=== PATIENT | female | born 1985 | race American Indian/Alaskan Native ===

== ENCOUNTER 2016-03-31 19:39 | Emergency (ER) | payer SELFPAY ==
[2016-03-31 20:35] VITALS: BP 113/71
[2016-03-31] MEDS ORDERED: TYLENOL PO ONE (20:38)
== END 2016-04-01 01:30 | disposition left against medical advice (07) ==
LOC: ED 19:39
DX: M79.1 Myalgia (principal); R60.9 Edema, unspecified; Z53.21 Procedure and treatment not carried out due to patient leaving prior to being seen by health care provider